=== PATIENT | female | born 1960 | race Caucasian/White ===

== ENCOUNTER → 2020-01-30 | Outpatient (CLI) | payer BC ==
[~2020-01-30] MED LIST: ALLEGRA60 MG PO; CELEXA 10 MG TA10 M1 PO; LEVOTHROID100 MC1 PO; LUNESTA3 MG PO; MIRALAX255 GM PO; MOTION RELIEF25 MG PO; ONDANSETRON HCL4 M2 PO
== END ==
LOC: SJCVCIMAG 10:30
PROVIDERS: ATTEND Internal Medicine Cardiovascular Disease
DX: I34.0 Nonrheumatic mitral (valve) insufficiency (principal); I45.10 Unspecified right bundle-branch block; Z82.49 Family history of ischemic heart disease and other diseases of the circulatory system